=== PATIENT | female | born 1975 | race Caucasian/White ===

== ENCOUNTER → 2016-08-05 | Outpatient (CLI) | payer OTHER | LOC: FIMAGING 11:26 | PROVIDERS: ATTEND Obstetrics & Gynecology | DX: O09.521 Supervision of elderly multigravida, first trimester (principal); Z3A.12 12 weeks gestation of pregnancy ==

== ENCOUNTER 2016-09-05 17:39 | Emergency (ER) | payer OTHER ==
--- NOTE | 2016-09-05 17:56 | CPEKG ---
Heart Rate: 68 RR Interval: 882 P-R Interval: 156 QRSD Interval: 90 QT Interval: 384 QTC Interval: 409 P [place]: 70 QRS [place]: 33 T Wave [place]: -2 EKG Severity - BORDERLINE ECG - EKG Impression: SINUS RHYTHM EKG Impression: BORDERLINE R WAVE PROGRESSION, ANTERIOR LEADS Electronically Signed By: Jey Burgos 05-Sep-2016 18:03:43
--- NOTE | 2016-09-05 18:06 | EDPHY ---
H & P Stated Complaint: pvc and sob since yesterday . 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 She comes to the emergency department complaining of 2 days of intermittent palpitations and chest tightness. She denies shortness of breath. She denies chest pain. She denies fevers. She denies leg pain or swelling. She is not a smoker. No recent travel. No recent procedures. She used her 's I phone heart monitor and thought that she saw a few PVCs yesterday. She was wondering if this was the problem. She also has history of Graves disease and is Synthroid. She had her levels checked 2 months ago and they were normal. REVIEW OF SYSTEMS: Constitutional: denies: chills, fever, recent illness, recent injury EENTM: denies: blurred vision, double vision, nose congestion Respiratory: denies: cough, shortness of breath Cardiac: denies: chest pain, irregular heart rate, lightheadedness, palpitations Gastrointestinal/Abdominal: denies: abdominal pain, diarrhea, nausea, vomiting, blood streaked stools Genitourinary: denies: dysuria, frequency, hematuria, pain Musculoskeletal: denies: joint pain, muscle pain Skin: denies: lesions, rash, jaundice, bruising Neurological: denies: headache, numbness, paresthesia, tingling, dizziness, weakness Hematologic/Lymphatic: denies: blood clots, easy bleeding, easy bruising Immunologic/allergic: denies: HIV/AIDS, transplant EXAM: GENERAL: Well-appearing, well-nourished and in no acute distress. HEAD: Atraumatic, normocephalic. EYES: Pupils equal round and reactive to light, extraocular movements intact, sclera anicteric, conjunctiva are normal. ENT: TMs normal, nares patent, oropharynx clear without exudates. Moist mucous membranes. NECK: Normal range of motion, supple without lymphadenopathy or JVD. LUNGS: Breath sounds clear to auscultation bilaterally and equal. No wheezes rales or rhonchi. HEART: Regular rate and rhythm without murmurs, rubs or gallops. ABDOMEN: Soft, nontender, normoactive bowel sounds. No guarding, no rebound. No masses appreciated. BACK: No CVA tenderness, no spinal tenderness, step-offs or deformities EXTREMITIES: Normal range of motion, no pitting or edema. No clubbing or cyanosis. NEUROLOGICAL: Cranial nerves II through XII grossly intact. Normal speech, normal gait. 5/5 strength, normal movement in all extremities, normal sensation PSYCH: Normal mood, normal affect. SKIN: Warm, dry, normal turgor, no visible rashes or lesions. Source: Patient Exam Limitations: No limitations - Personal History LMP (Females 10-55): Current Tetanus Diphtheria and Acellular Pertussis (TDAP): Yes - Medical/Surgical History Hx Asthma: No Hx Chronic Respiratory Disease: No Hx Diabetes: No Hx Cardiac Disease: No Hx Renal Disease: No Hx Cirrhosis: No Hx Alcoholism: No Hx HIV/AIDS: No Other PMH: Graves Dx. D+C - Family History Significant Family History: No pertinent family hx - Social History Smoking Status: Never smoked Alcohol Use: Sober Drug Use: None Constitutional: Initial Vital Signs Heart Rate 77 09/05/16 17:54 Respiratory Rate 16 09/05/16 17:54 Blood Pressure 149/49 H 09/05/16 17:54 O2 Sat (%) 100 09/05/16 17:54 O2 Delivery Mode Room Air Allergies/Adverse Reactions: No Known Allergies Allergy (Verified 09/05/16 17:57) Home Medications: Medication Instructions Recorded Pnv 29-1 Tablet 09/05/16 Zantac 09/05/16 Medical Decision Making ED Course/Re-evaluation: The patient is and has chest tightness and some non descriptive T-wave inversion in her EKG. However she is also not tachycardic or tachypneic is saturating 99-100% on room air. She has no risk factors other than and possibly Synthroid. We agreed to keep her on the monitor to assess for PVCs and obtain a D-dimer. 7:10 p.m. we discussed the patient's lab results are reassuring. On the monitor she does have occasional PVCs about 1 every minute or 2. We discussed this. She is relieved. She does not wish to pursue imaging. I agree that her likelihood of having a significant PE is very low considering her vital signs and general presentation. I will refer her to Cardiology but will not treat the PVCs at this time. She may also discuss with them an echocardiogram to evaluate further. Differential Diagnosis: Partial list of the Differential diagnosis considered include but were not limited to; PVC, palpitation, anxiety, DVT, PE and although unlikely based on the history and physical exam, I also considered acute coronary disease, pericardial effusion. I discussed these differential diagnoses and the plan with the patient as well as the usual and expected course. The patient understands that the diagnosis is provisional and that in medicine we are not always correct and that further workup is often warranted. Usual and customary warnings were given. All of the patient's questions were answered. The patient was instructed to return to the emergency department should the symptoms at all worsen or return, otherwise to followup with the physician as we discussed. - Data Points Laboratory Results: Laboratory Results 09/05/16 18:05 09/05/16 18:05 09/05/16 09/05/16 09/05/16 18:05 18:05 18:05 WBC 5.98 10^3/uL 10^3/uL (3.80-9.50) RBC 4.16 10^6/uL L 10^6/uL (4.18-5.33) Hgb 13.6 g/dL g/dL (12.6-16.3) Hct 36.6 % L % (38.0-47.0) MCV 88.0 fL fL (81.5-99.8) MCH 32.7 pg pg (27.9-34.1) MCHC 37.2 g/dL H g/dL (32.4-36.7) RDW 14.5 % % (11.5-15.2) Plt Count 192 10^3/uL 10^3/uL (150-400) MPV 9.7 fL fL (8.7-11.7) Neut % (Auto) 70.2 % % (39.3-74.2) Lymph % (Auto) 24.1 % % (15.0-45.0) Hudson % (Auto) 4.2 % L % (4.5-13.0) Eos % (Auto) 1.0 % % (0.6-7.6) Baso % (Auto) 0.2 % L % (0.3-1.7) Nucleat RBC Rel Count 0.0 % % (0.0-0.2) Absolute Neuts (auto) 4.20 10^3/uL 10^3/uL (1.70-6.50) Absolute Lymphs (auto) 1.44 10^3/uL 10^3/uL (1.00-3.00) Absolute Monos (auto) 0.25 10^3/uL L 10^3/uL (0.30-0.80) Absolute Eos (auto) 0.06 10^3/uL 10^3/uL (0.03-0.40) Absolute Basos (auto) 0.01 10^3/uL L 10^3/uL (0.02-0.10) Absolute Nucleated RBC 0.00 10^3/uL 10^3/uL (0-0.01) Immature Gran % 0.3 % % (0.0-1.1) Immature Gran # 0.02 10^3/uL 10^3/uL (0.00-0.10) D-Dimer 0.33 ug/mLFEU ug/mLFEU (0.00-0.50) Sodium 138 mEq/L mEq/L (134-144) Potassium 3.4 mEq/L L mEq/L (3.5-5.2) Chloride 102 mEq/L mEq/L (97-110) Carbon Dioxide 23 mEq/l mEq/l (22-31) Anion Gap 13 mEq/L mEq/L (8-16) BUN 9 mg/dL mg/dL (7-23) Creatinine 0.4 mg/dL L mg/dL (0.6-1.0) Estimated GFR > 60 Glucose 85 mg/dL mg/dL (70-100) Calcium 8.8 mg/dL mg/dL (8.5-10.4) TSH 1.570 uIU/mL uIU/mL (0.465-4.680) Free T4 0.89 ng/dL ng/dL (0.59-2.19) Departure - Departure Disposition: Home, Routine, Self-Care Clinical Impression: Premature ventricular contraction Condition: Fair Instructions: Premature Ventricular Contractions (ED) Referrals: Alcira Kim MD [Primary Care Provider] - As per Instructions Drew Aviles MD [Medical Doctor] - As per Instructions Mao Damico MD [Medical Doctor] - As per Instructions Joel Albright MD [Medical Doctor] - As per Instructions
[2016-09-05 18:10] LABS: % IMMATURE GRANULYOCYTES 0.3 % (0.0-1.1); ABSOLUTE IMMATURE GRANULOCYTES 0.02 10^3/uL (0.00-0.10); ADD DIFF? NO; ADD MORPH? NO; ADD SCAN? NO; ATYPICAL LYMPHOCYTE FLAG 0 (0-99); FRAGMENT RBC FLAG 0 (0-99); HEMATOCRIT 36.6 % (38.0-47.0); HEMOGLOBIN 13.6 g/dL (12.6-16.3); LEFT SHIFT FLG 0 (0-99); LIPEMIA HEMOLYSIS FLAG 90 (0-99); MEAN CELL HEMOGLOBIN 32.7 pg (27.9-34.1); MEAN CELL HEMOGLOBIN CONCENTR. 37.2 g/dL (32.4-36.7); MEAN PLATELET VOLUME 9.7 fL (8.7-11.7); PLATELET CLUMPS FLAG 10 (0-99); PLATELET COUNT 192 10^3/uL (150-400); RED BLOOD CELL COUNT 4.16 10^6/uL (4.18-5.33); RED CELL DISTRIBUTION WIDTH 14.5 % (11.5-15.2)
[2016-09-05 18:26] LABS: ANION GAP 13 mEq/L (8-16); CALCIUM 8.8 mg/dL (8.5-10.4); CARBON DIOXIDE 23 mEq/l (22-31); CHLORIDE 102 mEq/L (97-110); CREATININE 0.4 mg/dL (0.6-1.0); GLOMERULAR FILTRATION RATE > 60; GLUCOSE 85 mg/dL (70-100); POTASSIUM 3.4 mEq/L (3.5-5.2); SODIUM 138 mEq/L (134-144)
[2016-09-05 19:29] VITALS: BP 122/89; PULSE 73; RESP 24; TEMP 98.8; O2SAT 96
== END 2016-09-05 19:30 | disposition home or self-care (01) ==
LOC: CED 17:39
DX: O99.412 Diseases of the circulatory system complicating pregnancy, second trimester (principal); I49.3 Ventricular premature depolarization; Z3A.17 17 weeks gestation of pregnancy
CPT/HCPCS: 80048-PO; 84439-PO; 84443-PO; 85025-PO; 85378-PO

== ENCOUNTER → 2016-09-24 | Outpatient (CLI) | payer OTHER | LOC: FIMAGING 11:42 | PROVIDERS: ATTEND Obstetrics & Gynecology | DX: O09.522 Supervision of elderly multigravida, second trimester (principal); Z3A.19 19 weeks gestation of pregnancy ==

== ENCOUNTER → 2016-09-30 | Outpatient (CLI) | payer OTHER | LOC: CIMAGING 07:13 | PROVIDERS: ATTEND Obstetrics & Gynecology | DX: R10.11 Right upper quadrant pain (principal); Z3A.00 Weeks of gestation of pregnancy not specified | CPT/HCPCS: 76705-PO ==

== ENCOUNTER → 2016-12-16 | Outpatient (CLI) | payer OTHER | LOC: FIMAGING 09:15 | PROVIDERS: ATTEND Obstetrics & Gynecology | DX: O09.523 Supervision of elderly multigravida, third trimester (principal); K21.9 Gastro-esophageal reflux disease without esophagitis; Z3A.31 31 weeks gestation of pregnancy ==

== ENCOUNTER 2017-02-10 06:50 | Inpatient (IN) | payer OTHER ==
[2017-02-10] MEDS ORDERED: OXYTOCIN 20 UNIT in LR 1,000 ML IV PRN (07:50)
[2017-02-10] MEDS ORDERED: OLIVE OIL 118 ML BTL MISC PRN (07:50)
[2017-02-10] MEDS ORDERED: TERBUTALINE SULFATE 1 MG/ML VIAL IV PRN (07:50)
[2017-02-10] MEDS ORDERED: EPSOM SALT 454 GM TP PRN (07:50)
--- NOTE | 2017-02-10 07:57 | PDGENHP ---
History and Physical - Chief Complaint Scheduled for Induction of labor - History of Present Illness Patient is a 41 year old at 40 weeks MARIAM 02/10/17 gestation who presents for induction of labor. According to patient was last checked last week and cervix was closed. +FM No vaginal bleeding No leaking of fluid. History Information - Allergies/Home Medication List Allergies/Adverse Reactions: No Known Allergies Allergy (Verified 09/05/16 17:57) Home Medications: Pnv 29-1 Tablet 09/05/16 [Last Taken Unknown] Zantac 09/05/16 [Last Taken Unknown] I have personally reviewed and updated: medical history - Past Medical History no pertinent PMH - Social History Smoking Status: Never smoked Review of Systems Review of Systems: Physical Exam Physical Exam: Constitutional: no apparent distress Cardiovascular: regular rate and rhythym Respiratory: no respiratory distress, clear to auscultation Gastrointestinal: normoactive bowel sounds, soft, non-tender abdomen Genitourinary: other (SVE long/closed/ high Cephalic by ultrasound cervidil ) Musculoskeletal: full muscle strength, no muscle tenderness, normal joint ROM Neurologic: AAOx3 Psychiatric: interacting appropriately, not anxious Lab Data & Imaging Review O+/Rubella Immune/GBS negative Assessment & Plan Assessment: Assessment: IUP at 40 weeks gestation Induction of labor for post dates Cephalic by ultrasound SVE:long/closed/high Plan Admit to labor and Delivery Induction of labor and Delivery Cervidil risk and benefits discussed with patient all questions answered O+/Rubella Immune/ GBS negative Plan: Admit to labor and Delivery Induction of labor and Delivery Cervidil risk and benefits discussed with patient all questions answered O+/Rubella Immune/ GBS negative
[2017-02-10] MEDS ORDERED: DINOPROSTONE 10 MG VAG SUPP VG ONE (08:12)
[2017-02-10 09:26] LABS: % IMMATURE GRANULYOCYTES 0.4 % (0.0-1.1); ABSOLUTE IMMATURE GRANULOCYTES 0.02 10^3/uL (0.00-0.10); ADD DIFF? NO; ADD MORPH? NO; ADD SCAN? NO; ATYPICAL LYMPHOCYTE FLAG 0 (0-99); FRAGMENT RBC FLAG 0 (0-99); HEMATOCRIT 36.2 % (38.0-47.0); HEMOGLOBIN 13.2 g/dL (12.6-16.3); LEFT SHIFT FLG 0 (0-99); LIPEMIA HEMOLYSIS FLAG 90 (0-99); MEAN CELL HEMOGLOBIN 33.7 pg (27.9-34.1); MEAN CELL HEMOGLOBIN CONCENTR. 36.5 g/dL (32.4-36.7); MEAN CELL VOLUME 92.3 fL (81.5-99.8); MEAN PLATELET VOLUME 10.8 fL (8.7-11.7); PLATELET CLUMPS FLAG 0 (0-99); PLATELET COUNT 146 10^3/uL (150-400); RED BLOOD CELL COUNT 3.92 10^6/uL (4.18-5.33); RED CELL DISTRIBUTION WIDTH 13.2 % (11.5-15.2)
[2017-02-10] MEDS: Ranitidine Hcl [Zantac] 150 MG PO SCH (19:06)
--- NOTE | 2017-02-10 19:12 | OBPROG ---
Labor Progress Note Assessment/Plan: Assessment: Plan: Subjective/Intrapartum Course: 02/10/17 19:09 Patient is more uncomfortable. was examined 2 hours ago and was 3-4 cm. contractions have intensified. just examined and was 4 cm. Objective: 02/10/17 08:45 Patient ABO/Rh O POSITIVE 02/10/17 08:45 - SVE Dilation (cm): 4 Effacement (%): 75 Station: -2 Membranes: AROM Amniotic Fluid Color: Clear - FHR Assessment Herrera FHR Pattern Variability: Moderate FHR Category: 1 Oxytocin Orders Assessment - Pre-Induction/Augmentation Assessment Gestational Age: 40 week(s) and 0 day(s)
--- NOTE | 2017-02-11 00:10 | OBPROG ---
Labor Progress Note Assessment/Plan: Assessment: Plan: Subjective/Intrapartum Course: 02/11/17 00:09 cervidil removed at 2100. SVE 1/long/-2. da silva bulb placed without difficulty. patient uncomfortable with cramping. Objective: 02/10/17 08:45 Patient ABO/Rh O POSITIVE 02/10/17 08:45 - SVE Dilation (cm): 1 Effacement (%): Less than 50 Station: -2 Membranes: Intact - FHR Assessment Herrera FHR Pattern Variability: Moderate FHR Category: 1 Oxytocin Orders Assessment - Pre-Induction/Augmentation Assessment Gestational Age: 40 week(s) and 0 day(s) ICD10 Worksheet Patient Problems: Problems Problem Status Onset hypertension Acute Urinary tract infection Acute Elective induction of labor planned Acute
[2017-02-11] MEDS ORDERED: LR 500 ML IV PRN (00:11)
[2017-02-11] MEDS ORDERED: OXYTOCIN 30 UNIT in NS 500 ML IV SCH (00:15)
--- NOTE | 2017-02-11 00:45 | OBPROG ---
Labor Progress Note Assessment/Plan: Assessment: Plan: Subjective/Intrapartum Course: 02/11/17 00:09 cervidil removed at 2100. SVE 1/long/-2. da silva bulb placed without difficulty. patient uncomfortable with cramping. 02/11/17 00:45 patient feeling much more cramping. feels better in the tub. declines pain medication. wants to sit in the tub. fhts doppled. Objective: 02/10/17 08:45 Patient ABO/Rh O POSITIVE 02/10/17 08:45 - SVE Membranes: Intact - FHR Assessment Herrera FHR Pattern Variability: Moderate FHR Category: 1 Oxytocin Orders Assessment - Pre-Induction/Augmentation Assessment Gestational Age: 40 week(s) and 0 day(s) ICD10 Worksheet Patient Problems: Problems Problem Status Onset hypertension Acute Urinary tract infection Acute Elective induction of labor planned Acute
[2017-02-11] MEDS ORDERED: OXYTOCIN 10 UNIT/ML VIAL ONE (06:23)
[2017-02-11] MEDS ORDERED: AMMONIA AROMATIC 1 EACH AMP IH ONE (06:23)
[2017-02-11] MEDS ORDERED: LIDOCAINE 1% 300 MG/30 ML SDV ONE (06:23)
[2017-02-11] MEDS ORDERED: OLIVE OIL 118 ML BTL ONE (06:23)
[2017-02-11] MEDS ORDERED: TERBUTALINE SULFATE 1 MG/ML VIAL ONE (06:23)
[2017-02-11] MEDS ORDERED: MISOPROSTOL 200 MCG TAB ONE (06:24)
[2017-02-11] MEDS: Ranitidine Hcl [Zantac] 150 MG PO SCH ×2 (06:59→18:54)
[2017-02-11] MEDS: LR 1,000 ML IV PRN ×2 (07:35→19:38)
--- NOTE | 2017-02-11 07:35 | OBPROG ---
Labor Progress Note Assessment/Plan: Assessment: 41 y/o @ 40 1/7 weeks IOL secondary to AMA. Plan: Begin pitocin now and will leave the da silva in place for now. I will check her cervix when she develops a good labor pattern and remove the da silva to attempt AROM. 02/11/17 07:32 Subjective/Intrapartum Course: 02/11/17 00:09 cervidil removed at 2100. SVE 1/long/-2. da silva bulb placed without difficulty. patient uncomfortable with cramping. 02/11/17 00:45 patient feeling much more cramping. feels better in the tub. declines pain medication. wants to sit in the tub. fhts doppled. 02/11/17 07:30 Pt is comfortable this am. She slept well from about 2am-6 am. She denies cramping now. Good FM. Objective: 02/10/17 08:45 Patient ABO/Rh O POSITIVE 02/10/17 08:45 - SVE Membranes: Intact - Contraction Pattern Assessment Current Contraction Pattern: Irregular - FHR Assessment Herrera FHR (bpm): 130 FHR Pattern Variability: Moderate FHR Category: 1 Oxytocin Orders Assessment - Pre-Induction/Augmentation Assessment Gestational Age: 40 week(s) and 0 day(s) ICD10 Worksheet Patient Problems: Problems Problem Status Onset Elective induction of labor planned Acute - ICD10 Problem Qualifiers (1) Elective induction of labor planned
--- NOTE | 2017-02-11 12:38 | OBPROG ---
Labor Progress Note Assessment/Plan: Assessment: 41 y/o @ 40 1/7 weeks IOL secondary to AMA. Plan: Da Silva removed and AROM performed now. Pt is getting into the tub and may consider an epidural later. status is reassuring. 02/11/17 07:32 02/11/17 12:37 Subjective/Intrapartum Course: 02/11/17 00:09 cervidil removed at 2100. SVE 1/long/-2. da silva bulb placed without difficulty. patient uncomfortable with cramping. 02/11/17 00:45 patient feeling much more cramping. feels better in the tub. declines pain medication. wants to sit in the tub. fhts doppled. 02/11/17 07:30 Pt is comfortable this am. She slept well from about 2am-6 am. She denies cramping now. Good FM. 02/11/17 12:36 Pt is feeling some stronger contractions, but is still overall comfortable. Objective: 02/10/17 08:45 Patient ABO/Rh O POSITIVE 02/10/17 08:45 - SVE Dilation (cm): 4 Effacement (%): 80 Station: -2 Membranes: AROM, Intact Amniotic Fluid Color: Clear - Contraction Pattern Assessment Current Contraction Pattern: Regular (Q 2-3), Irregular - Procedures Non-surgical Procedures: Amniotomy Oxytocin Orders Assessment - Pre-Induction/Augmentation Assessment Gestational Age: 40 week(s) and 0 day(s) ICD10 Worksheet Patient Problems: Problems Problem Status Onset Elective induction of labor planned Acute - ICD10 Problem Qualifiers (1) Elective induction of labor planned
--- NOTE | 2017-02-11 18:49 | OBPROG ---
Labor Progress Note Assessment/Plan: Assessment: 41 y/o @ 40 1/7 weeks IOL secondary to AMA. Plan: Good cervical progress, pt is coping with contractions but is feeling tired. She wants to get back in the tub for 1 hour and may consider NO or an epidural. status is reassuring. 02/11/17 07:32 02/11/17 12:37 02/11/17 18:45 Subjective/Intrapartum Course: 02/11/17 00:09 cervidil removed at 2100. SVE 1/long/-2. da silva bulb placed without difficulty. patient uncomfortable with cramping. 02/11/17 00:45 patient feeling much more cramping. feels better in the tub. declines pain medication. wants to sit in the tub. fhts doppled. 02/11/17 07:30 Pt is comfortable this am. She slept well from about 2am-6 am. She denies cramping now. Good FM. 02/11/17 12:36 Pt is feeling some stronger contractions, but is still overall comfortable. 02/11/17 18:44 Pt is feeling strong and uncomfortable contractions, she feels pelvic pressure and says she is getting very tired. Objective: 02/10/17 08:45 Patient ABO/Rh O POSITIVE 02/10/17 08:45 - SVE Dilation (cm): 6 Effacement (%): 80 Station: 0 Membranes: AROM, Intact Amniotic Fluid Color: Clear - Contraction Pattern Assessment Current Contraction Pattern: Regular (Q 2-3), Irregular - Procedures Non-surgical Procedures: Amniotomy Oxytocin Orders Assessment - Pre-Induction/Augmentation Assessment Gestational Age: 40 week(s) and 0 day(s) ICD10 Worksheet Patient Problems: Problems Problem Status Onset Elective induction of labor planned Acute - ICD10 Problem Qualifiers (1) Elective induction of labor planned
[2017-02-11] MEDS ORDERED: fentaNYL 2MCG/ML/BUP 0.1% RTU 100 ML BAG EP ONE (19:16)
[2017-02-11] MEDS ORDERED: PHENYLEPHRINE HCL 100 MCG/ML SYR ONE (19:16)
[2017-02-11] MEDS ORDERED: BUPIVACAINE 0.25% 30 ML SDV ONE (19:16)
[2017-02-11] MEDS ORDERED: fentaNYL 100 MCG/2 ML INJ ONE (19:17)
--- NOTE | 2017-02-11 20:52 | OBPROG ---
Labor Progress Note Assessment/Plan: Assessment: 41 y/o @ 40 1/7 weeks IOL secondary to AMA. Plan: Pt is now comfortable with her epidural. She has slowed with cervical progress and contractions have spaced to Q 5 minutes or more. I placed an IUPC and we will increase pitocin to document a good labor pattern. status is reassuring. 02/11/17 07:32 02/11/17 12:37 02/11/17 18:45 02/11/17 20:50 Subjective/Intrapartum Course: 02/11/17 00:09 cervidil removed at 2100. SVE 1/long/-2. da silva bulb placed without difficulty. patient uncomfortable with cramping. 02/11/17 00:45 patient feeling much more cramping. feels better in the tub. declines pain medication. wants to sit in the tub. fhts doppled. 02/11/17 07:30 Pt is comfortable this am. She slept well from about 2am-6 am. She denies cramping now. Good FM. 02/11/17 12:36 Pt is feeling some stronger contractions, but is still overall comfortable. 02/11/17 18:44 Pt is feeling strong and uncomfortable contractions, she feels pelvic pressure and says she is getting very tired. 02/11/17 20:49 Pt is now comfortable with her epidural. Objective: 02/10/17 08:45 Patient ABO/Rh O POSITIVE 02/10/17 08:45 - SVE Dilation (cm): 6 Effacement (%): 80 Station: 0 Membranes: AROM, Intact Amniotic Fluid Color: Clear - Contraction Pattern Assessment Current Contraction Pattern: Regular (Q 3-5), Irregular - FHR Assessment Herrera FHR (bpm): 140 FHR Pattern Variability: Moderate FHR Category: 1 - Procedures Non-surgical Procedures: Amniotomy, IUPC Oxytocin Orders Assessment - Pre-Induction/Augmentation Assessment Gestational Age: 40 week(s) and 0 day(s) ICD10 Worksheet Patient Problems: Problems Problem Status Onset Elective induction of labor planned Acute - ICD10 Problem Qualifiers (1) Elective induction of labor planned
--- NOTE | 2017-02-11 22:07 | PREANESOB ---
Obstetric Pre-Anesthesia Info - General Info Proposed Procedure: Labor and delivery with pitocin. : 2 Para: 0 MARIAM: 02/10/17 Gestational Age: 40 week(s) and 0 day(s) - Info Status: Full Term Monitors: External FHR Baseline (bpm): 130 FHR Pattern: Reassuring - Labor Status Cervical Dilation per last OB SVE: 6 Station per last OB SVE: 0 Amniotic Fluid Color: Clear Pitocin: In Use Indications for Labor Analgesia: Induction of Labor, Pain Control Labor Epidural: Proposed Anesthesia ROS: Prior general anesthesia for D&C. Allergies/Adverse Reactions: Allergy/AdvReac Type Severity Reaction Status Date / Time No Known Allergies Allergy Verified 09/05/16 17:57 Home Medications: Medication Instructions Recorded Pnv 29-1 Tablet 09/05/16 Ranitidine HCl [Zantac] 150 mg PO BID 09/05/16 Visit Medications: Generic Name Dose Route Start Last Admin Trade Name Freq PRN Reason Stop Dose Admin Lactated Ringer's 1,000 mls @ 0 mls/hr 02/10/17 07:50 02/11/17 19:38 Lr IV 08/09/17 07:49 1,000 mls PRN PRN Administration SEE PROTOCOL CONDITIONS Protocol Per Protocol Oxytocin 20 unit/ Lactated 1,002 mls @ 150 mls/hr 02/10/17 07:50 Ringer's IV PRN PRN Post- bleeding Lactated Ringer's 500 mls @ 500 mls/hr 02/11/17 00:11 Lr IV PRN PRN Maternal Hypotension Oxytocin 30 unit/ Sodium 503 mls @ 0 mls/hr 02/11/17 00:15 Chloride IV 08/10/17 00:14 CONT ELISA Protocol Per Protocol Ibuprofen 600 mg 02/10/17 07:50 Motrin PO 08/09/17 07:49 Q6HRS PRN post , inflammation Magnesium Sulfate 454 gm 02/10/17 07:50 Epsom Salt TP 08/09/17 07:49 Q1H PRN perineal discomfort Miscellaneous Medication 150 mg 02/10/17 21:00 02/11/17 18:54 Ranitidine Hcl [Zantac] PO 08/09/17 20:59 150 mg BID ELISA Administration [place]annah Oil 118 ml 02/10/17 07:50 Sweet Oil MISC 08/09/17 07:49 ONCE PRN perineal massage Terbutaline Sulfate 0.25 mg 02/10/17 07:50 Brethine IV 08/09/17 07:49 ONCE PRN Tachysystole Discontinued Medications Generic Name Dose Route Start Last Admin Trade Name Brianna PRN Reason Stop Dose Admin Ammonia (Aromatic Spirit) Confirm 02/11/17 06:23 Ammonia Aromatic Administered 02/11/17 06:24 Dose 1 each IH .STK-MED ONE Bupivacaine HCl Confirm 02/11/17 19:16 Sensorcaine 0.25% Sdv Administered 02/11/17 19:17 Dose 30 ml .ROUTE .STK-MED ONE Dinoprostone 10 mg 02/10/17 08:12 02/10/17 08:55 Cervidil VG 02/10/17 08:13 10 mg ONCE ONE Administration Ephedrine Sulfate Confirm 02/11/17 06:23 Ephedrine Sulfate Administered 02/11/17 06:24 Dose 50 mg .ROUTE .STK-MED ONE Fentanyl Confirm 02/11/17 19:17 Sublimaze Administered 02/11/17 19:18 Dose 100 mcg .ROUTE .STK-MED ONE Fentanyl/Bupivacaine HCl Confirm 02/11/17 19:16 Fentanyl/Bupivacaine/Ns 2 Mcg/Ml 0.1% (Premix Administered 02/11/17 19:17 Dose 100 ml EP .STK-MED ONE Lidocaine HCl Confirm 02/11/17 06:23 Lidocaine Hcl 1% Administered 02/11/17 06:24 Dose 300 mg .ROUTE .STK-MED ONE Misoprostol Confirm 02/11/17 06:24 Cytotec Administered 02/11/17 06:25 Dose 1,000 mcg .ROUTE .STK-MED ONE [place] Oil Confirm 02/11/17 06:23 Sweet Oil Administered 02/11/17 06:24 Dose 118 ml .ROUTE .STK-MED ONE Oxytocin Confirm 02/11/17 06:23 Pitocin Administered 02/11/17 06:24 Dose 40 unit .ROUTE .STK-MED ONE Phenylephrine HCl Confirm 02/11/17 19:16 Neosynephrine Administered 02/11/17 19:17 Dose 1,000 mcg .ROUTE .STK-MED ONE Terbutaline Sulfate Confirm 02/11/17 06:23 Brethine Administered 02/11/17 06:24 Dose 1 mg .ROUTE .STK-MED ONE - Anesthesia History Response to Local Anesthetics: Normal Anesthesia & Operative History: No Prior Problems Family Anesthesia History: Negative - Social History Substance Use/Abuse: Denies - Vital Signs Blood Pressure: 158/88 Heart Rate: 90 Height/Weight (Nursing): Height 162.56 cm Weight 67.132 kg - Focused Exam Neck exam: FROM Mallampati Score: Class 1 Mouth exam: normal dental/mouth exam Pulmonary: no respiratory distress Cardiovascular: regular rate and rhythym Labs: 02/10/17 08:45 Patient ABO/Rh O POSITIVE 02/10/17 08:45 - Plan Anesthetic Plan: OZZY Consent Signed and on Chart: Yes Patient/Guardian Understands and Agrees to Plan: Yes Urgent/Emergent Case: Adriel phillips completed preop but documented later for safe timely pt care
[2017-02-11] MEDS ORDERED: PHENYLEPHRINE HCL 100 MCG/ML SYR IVP PRN (22:10)
[2017-02-11] MEDS ORDERED: ONDANSETRON 4 MG/2 ML VIAL IVP PRN (22:10)
--- NOTE | 2017-02-11 22:10 | POSTANESTH ---
Post Anesthetic Evaluation Cardiovascular Status: Normal, Stable, Similar to Pre-Op Cond Respiratory Status: Normal, Stable, Similar to Pre-op Cond. Level of Consciousness/Mental Status: Can Participate in Eval, Alert and Oriented Pain Control: Adequate, Prn Tx Ordered Nausea/Vomiting Control: Adequate, Prn Tx Ordered Complications Possibly Related to Anesthesia: None Noted
[2017-02-11] MEDS ORDERED: LR 500 ML IV SCH (22:30)
[2017-02-11] MEDS ORDERED: fentaNYL 2MCG/ML/BUP 0.1% RTU 100 ML EP SCH (22:30)
--- NOTE | 2017-02-11 23:51 | OBPROG ---
Labor Progress Note Assessment/Plan: Assessment: 41 y/o @ 40 1/7 weeks IOL secondary to AMA. Plan: Pt is making slow steady progress, pitocin is @ 30 mU now, and not adequate but improved. Will rotate patient on her left side where her cervix is swollen and re-asses in 1-2 hours. 02/11/17 07:32 02/11/17 12:37 02/11/17 18:45 02/11/17 20:50 02/11/17 23:47 Subjective/Intrapartum Course: 02/11/17 00:09 cervidil removed at 2100. SVE 1/long/-2. da silva bulb placed without difficulty. patient uncomfortable with cramping. 02/11/17 00:45 patient feeling much more cramping. feels better in the tub. declines pain medication. wants to sit in the tub. fhts doppled. 02/11/17 07:30 Pt is comfortable this am. She slept well from about 2am-6 am. She denies cramping now. Good FM. 02/11/17 12:36 Pt is feeling some stronger contractions, but is still overall comfortable. 02/11/17 18:44 Pt is feeling strong and uncomfortable contractions, she feels pelvic pressure and says she is getting very tired. 02/11/17 20:49 Pt is now comfortable with her epidural. 02/11/17 23:46 Pt remains comfortable with her epidural, she feels some abdominal pressure, not pelvic. Objective: 02/10/17 08:45 Patient ABO/Rh O POSITIVE 02/10/17 08:45 Temp Pulse Resp BP Pulse Ox 90 158/88 H 02/11/17 22:09 02/11/17 22:09 - SVE Dilation (cm): 8 Effacement (%): 75 Station: -1 Membranes: AROM, Intact Amniotic Fluid Color: Clear - Contraction Pattern Assessment Current Contraction Pattern: Regular (Q 3-5), Irregular - FHR Assessment Herrera FHR (bpm): 140 FHR Pattern Variability: Moderate FHR Category: 1 - Procedures Non-surgical Procedures: Amniotomy, IUPC Oxytocin Orders Assessment - Pre-Induction/Augmentation Assessment Gestational Age: 40 week(s) and 0 day(s) ICD10 Worksheet Patient Problems: Problems Problem Status Onset Elective induction of labor planned Acute - ICD10 Problem Qualifiers (1) Elective induction of labor planned
[2017-02-12] MEDS ORDERED: HEMABATE 250 MCG/1 ML AMP IM ONE (03:08)
[2017-02-12] MEDS ORDERED: METHYLERGONOVINE MAL 0.2 MG/ML INJ ONE (03:08)
[2017-02-12] MEDS ORDERED: SIMETHICONE 80 MG TAB CHEW PO PRN (04:29)
[2017-02-12] MEDS ORDERED: HYDROCORTISONE 0.5% CREAM TP PRN (04:29)
[2017-02-12] MEDS ORDERED: ACETAMINOPHEN 325 MG TAB PO PRN (04:29)
[2017-02-12] MEDS ORDERED: HYDROCODONE/APAP 5/325 TAB PO PRN (04:29)
--- NOTE | 2017-02-12 04:33 | OBDEL ---
Info Type: Vaginal Presentation at Delivery: Vertex L&D Analgesia/Anesthesia Type: Epidural GBS+: No Intrapartum Medications: Generic Name Dose Route Start Last Admin Trade Name Freq PRN Reason Stop Dose Admin Lactated Ringer's 1,000 mls @ 0 mls/hr 02/10/17 07:50 02/11/17 19:38 Lr IV 08/09/17 07:49 1,000 mls PRN PRN Administration SEE PROTOCOL CONDITIONS Protocol Per Protocol Miscellaneous Medication 150 mg 02/10/17 21:00 02/11/17 18:54 Ranitidine Hcl [Zantac] PO 08/09/17 20:59 150 mg BID ELISA Administration Discontinued Medications Generic Name Dose Route Start Last Admin Trade Name Freq PRN Reason Stop Dose Admin Dinoprostone 10 mg 02/10/17 08:12 02/10/17 08:55 Cervidil VG 02/10/17 08:13 10 mg ONCE ONE Administration - Care Provider Press Pipe Inspector/SLAB INSPECTOR: Sahara Meza - Hospital Course Intrapartum: 02/11/17 00:09 cervidil removed at 2100. SVE 1/long/-2. da silva bulb placed without difficulty. patient uncomfortable with cramping. 02/11/17 00:45 patient feeling much more cramping. feels better in the tub. declines pain medication. wants to sit in the tub. fhts doppled. 02/11/17 07:30 Pt is comfortable this am. She slept well from about 2am-6 am. She denies cramping now. Good FM. 02/11/17 12:36 Pt is feeling some stronger contractions, but is still overall comfortable. 02/11/17 18:44 Pt is feeling strong and uncomfortable contractions, she feels pelvic pressure and says she is getting very tired. 02/11/17 20:49 Pt is now comfortable with her epidural. 02/11/17 23:46 Pt remains comfortable with her epidural, she feels some abdominal pressure, not pelvic. Indications for Delivery: Elective (40 weeks, AMA) Vaginal Delivery - Delivery Provider Delivery Physician/CNM: Lupis Castellon - Labor and Delivery Onset of Contractions Date: 02/10/17 Onset of Contractions Time: 09:45 Onset of Contractions Type: Induced Rupture of Membranes Date: 02/11/17 Rupture of Membranes Time: 12:29 Rupture of Membranes Type: Artificial Amniotic Fluid Color: Clear, Meconium Stained (terminal meconium) Dilation Complete Date: 02/12/17 Dilation Complete Time: 02:59 Placenta Delivery Date: 02/12/17 Placenta Delivery Time: 04:14 Total Hours of Labor: 42 Non-surgical Procedures: Amniotomy, IUPC Laceration: 2nd Degree Repair: 2-0, Vicryl Vaginal Sponge Count Correct: Yes Vaginal Needle Count Correct: Yes Vaginal Sweep Performed: No EBL: 300 Delivery Events: Nuchal Cord (tight x 1, reduced on perineum) - Medications Labor Augmentation/Induction Methods Used: Pitocin, Misoprostol, Da Silva Bulb, Cervadil Labor Augmentation/Induction Indication: Other (Specify) (40 weeks, AMA) [place] Data Herrera Delivery Date: 02/12/17 Delivery Time: 04:11 MARIAM: 02/10/17 Gestational Age: 40 week(s) and 2 day(s) Sex of : Female Score (1 Min): 1 Score (5 Min): 8 ICD10 Worksheet Patient Problems: Problems Problem Status Onset Elective induction of labor planned Acute - ICD10 Problem Qualifiers (1) Elective induction of labor planned
[2017-02-12 04:36] LABS: PH VENOUS CORD BLOOD 7.12 (7.20-7.42)
[2017-02-12] MEDS: IBUPROFEN 600 MG TAB PO PRN ×3 (05:50→18:57)
--- NOTE | 2017-02-12 12:45 | OBPP ---
Progress Note Assessment/Plan: Assessment: PPD 1/2 s/p had cath Plan: Routine care 02/12/17 12:41 Subjective/ Course: 02/12/17 12:45 Doing ok, happy with delivery, no rest yet Objective: 02/10/17 08:45 Patient ABO/Rh O POSITIVE 02/10/17 08:45 Temp Pulse Resp BP Pulse Ox 90 158/88 H 02/11/17 22:09 02/11/17 22:09 Uterine Position/Fundal Height: At Umbilicus Uterine Tone: Firm Physical Exam - Physical Exam Abdomen: non-tender, soft, other (FF at umb -1) Extremities: non-tender, pedal edema (minimal) Skin: normal color, warm/dry Neuro/Psych: alert, normal mood/affect
[2017-02-12] MEDS: Ranitidine Hcl [Zantac] 150 MG PO SCH ×2 (14:41→21:43)
[2017-02-12] MEDS: DOCUSATE SODIUM 100 MG CAP PO PRN (15:33)
[2017-02-12 21:59] VITALS: RESP 16
[2017-02-13] MEDS: IBUPROFEN 600 MG TAB PO PRN ×5 (00:33→19:30)
[2017-02-13] MEDS ORDERED: SUCROSE 1 EA UDL ONE (04:28)
[2017-02-13] MEDS: DOCUSATE SODIUM 100 MG CAP PO PRN (08:22)
--- NOTE | 2017-02-13 09:39 | OBPP ---
Progress Note Assessment/Plan: Assessment: [id number] s/p PPD#1 Plan: routine PP care cont ambulate plan to d/c home tomorrow 02/13/17 09:36 Subjective/ Course: 02/12/17 12:45 Doing ok, happy with delivery, no rest yet 02/13/17 09:37 Pt doing well, she denies any pain. She reports min bleeding and cramping. She is . She denies any depression. FOB @ BS and supportive. She is voiding without difficulty. Objective: 02/13/17 04:36 Patient ABO/Rh O POSITIVE 02/10/17 08:45 Temp Pulse Resp BP Pulse Ox 36.2 C 89 16 128/73 H 02/12/17 19:50 02/12/17 19:50 02/12/17 19:50 02/12/17 19:50 Uterine Position/Fundal Height: At Umbilicus, Midline Uterine Tone: Firm Physical Exam - Physical Exam EENT: PERRL/EOMI Neck: non-tender Respiratory: lungs clear, normal breath sounds Cardiac/Chest: regular rate, rhythm Abdomen: non-tender, soft Extremities: normal range of motion, non-tender Skin: normal color, warm/dry Neuro/Psych: no motor/sensory deficits, alert, normal mood/affect, oriented x 3
[2017-02-13] MEDS: Ranitidine Hcl [Zantac] 150 MG PO SCH (09:49)
[2017-02-14] MEDS: IBUPROFEN 600 MG TAB PO PRN ×2 (00:41→09:46)
[2017-02-14] MEDS: DOCUSATE SODIUM 100 MG CAP PO PRN ×2 (00:41→09:46)
[2017-02-14] MEDS: Ranitidine Hcl [Zantac] 150 MG PO SCH ×2 (00:43→12:15)
--- NOTE | 2017-02-14 08:40 | OBPP ---
Progress Note Assessment/Plan: Assessment: Post day 2 Stable afebrile Tolerating diet ambulating and breast feeding Ready to discharge home Plan: Discharge home Follow up two weeks for wellness check Ibuprofen and norco for pain Return precautions given. 02/14/17 08:39 02/14/17 08:46 Subjective/ Course: 02/12/17 12:45 Doing ok, happy with delivery, no rest yet 02/13/17 09:37 Pt doing well, she denies any pain. She reports min bleeding and cramping. She is . She denies any depression. FOB @ BS and supportive. She is voiding without difficulty. Objective: 02/13/17 04:36 Patient ABO/Rh O POSITIVE 02/10/17 08:45 Temp Pulse Resp BP Pulse Ox 36.5 C 81 16 117/77 96 02/13/17 20:00 02/13/17 20:00 02/13/17 20:00 02/13/17 20:00 02/13/17 20:00 Uterine Position/Fundal Height: Umbilicus -2 Uterine Tone: Firm Physical Exam - Physical Exam Respiratory: chest non-tender Abdomen: normal bowel sounds, non-tender, soft Extremities: normal range of motion, non-tender Back: Normal inspection Skin: normal color, warm/dry Neuro/Psych: no motor/sensory deficits, alert, normal mood/affect, oriented x 3
--- NOTE | 2017-02-14 08:51 | OBGCSDC ---
General Delivery Information - General Info : 2 Para: 1 Abortions: 1 Type: Vaginal L&D Analgesia/Anesthesia Type: Epidural Admission Date: 02/10/17 Labs: Patient ABO/Rh O POSITIVE 02/10/17 08:45 Hct 32.3 % (38.0-47.0) L 02/13/17 04:36 - Hospital Course Intrapartum: 02/11/17 00:09 cervidil removed at 2100. SVE 1/long/-2. da silva bulb placed without difficulty. patient uncomfortable with cramping. 02/11/17 00:45 patient feeling much more cramping. feels better in the tub. declines pain medication. wants to sit in the tub. fhts doppled. 02/11/17 07:30 Pt is comfortable this am. She slept well from about 2am-6 am. She denies cramping now. Good FM. 02/11/17 12:36 Pt is feeling some stronger contractions, but is still overall comfortable. 02/11/17 18:44 Pt is feeling strong and uncomfortable contractions, she feels pelvic pressure and says she is getting very tired. 02/11/17 20:49 Pt is now comfortable with her epidural. 02/11/17 23:46 Pt remains comfortable with her epidural, she feels some abdominal pressure, not pelvic. : 02/12/17 12:45 Doing ok, happy with delivery, no rest yet 02/13/17 09:37 Pt doing well, she denies any pain. She reports min bleeding and cramping. She is . She denies any depression. FOB @ BS and supportive. She is voiding without difficulty. Vaginal - Delivery Provider Delivery Physician/CNM: Lupis Castellon - Diagnosis Labor: Induced Rupture of Membranes Type: Artificial Amniotic Fluid Color: Clear, Meconium Stained (terminal meconium) Laceration: 2nd Degree Repair: 2-0, Vicryl Delivery Events: Nuchal Cord (tight x 1, reduced on perineum) - Procedures Non-surgical Procedures: Amniotomy, IUPC - Delivery Non-surgical Procedures: Amniotomy, IUPC EBL: [address] Data Herrera Delivery Date: 02/12/17 Delivery Time: 04:11 MARIAM: 02/10/17 Gestational Age: 40 week(s) and 4 day(s) Sex of Infant: Female Weight (gm): 3006 g Score (1 Min): 1 Score (5 Min): 8 Score (10 Min): 9 Discharge Information - Discharge Information Prescriptions: Hydrocodone/APAP 5/325 [[place] 5/325 (*)] 1 - 2 tab PO Q4HRS PRN #30 tab PRN Reason: Pain, Moderate Ibuprofen [Motrin (*)] 600 mg PO Q6HRS PRN #30 tab PRN Reason: post , inflammation Docusate Sodium [Colace 100 MG (*)] 100 mg PO BID PRN #30 cap PRN Reason: Constipation Condition: Good Instruction/Follow Up: Two Weeks
[2017-02-14 11:08] VITALS: BP 114/70; PULSE 97; TEMP 97; O2SAT 97
== END 2017-02-14 14:50 | disposition home or self-care (01) | DRG 775 ==
LOC: FLD 06:50 → FOB 02-12 09:00
PROVIDERS: ADMIT Obstetrics & Gynecology; ATTEND Obstetrics & Gynecology
PROC: 0U7C7ZZ Dilation of Cervix, Via Natural or Artificial Opening (ICD-10-PCS; 2017-02-11)
PROC: 3E033VJ Introduction of Other Hormone into Peripheral Vein, Percutaneous Approach (ICD-10-PCS; 2017-02-11)
PROC: 10H073Z Insertion of Monitoring Electrode into Products of Conception, Via Natural or Artificial Opening (ICD-10-PCS; 2017-02-11)
PROC: 10E0XZZ Delivery of Products of Conception, External Approach (ICD-10-PCS; principal; 2017-02-12)
PROC: 0KQM0ZZ Repair Perineum Muscle, Open Approach (ICD-10-PCS; 2017-02-12)
DX: O48.0 Post-term pregnancy (principal); O63.0 Prolonged first stage (of labor); O77.0 Labor and delivery complicated by meconium in amniotic fluid; O70.1 Second degree perineal laceration during delivery; O69.89X0 Labor and delivery complicated by other cord complications, not applicable or unspecified; Z3A.40 40 weeks gestation of pregnancy; Z37.0 Single live birth
CPT/HCPCS: J2210; J2370; J3010; J3105

== ENCOUNTER 2017-02-16 18:24 | Observation (INO) | payer OTHER ==
--- NOTE | 2017-02-16 18:47 | EDPHY ---
H & P Time Seen by Provider: 02/16/17 18:28 HPI/ROS: CHIEF COMPLAINT: Hypertension HISTORY OF PRESENT ILLNESS: The patient is a 41-year-old female who presents to the emergency department with hypertension. The patient is G2 para 1. Her 1st she she had a miscarriage a weeks. Her 2nd , she had a vaginal delivery on 02/12/[address] Castellon. She was 40 weeks . There was a nuchal cord but no other complications. She had no hypertension or preeclampsia during either . After delivery she noticed that she had mild bilateral pedal edema. Her baker head saw his prior to discharge. Patient states that her swelling has worsened. Because of this she took her blood pressure and it was 190/100. The patient denies any headache or blurred vision. She has no leg or calf pain. Her swelling is symmetric. She has had no chest pain or shortness of breath. No abdominal pain. No nausea or vomiting. REVIEW OF SYSTEMS: My complete review of systems is negative except as mentioned in the HPI. Past Medical/Surgical History: Includes Graves disease, GERD Social history: Patient does not smoke or use alcohol. The patient works as a cardiac nurse. Smoking Status: Never smoked Physical Exam: Vitals noted. 179/98 GENERAL: Anxious, in no acute distress, alert. HEENT: Eyes normal to inspection, normal pharynx, no signs of dehydration. NECK: No thyromegaly, no lymphadenopathy, supple. RESPIRATORY: Clear to auscultation bilaterally, no rales, rhonchi or wheezing. CVS: Regular rate and rhythm, no rubs, murmurs, or gallops. ABDOMEN: . Mild residual abdominal swelling. Soft, nontender, no organomegaly. BACK: Normal to inspection, no CVA tenderness. SKIN: Normal color, no rash, warm, dry. No pallor. EXTREMITIES: Mild bilateral pedal edema, no calf tenderness, no Homans sign or cords, no joint swelling. NEURO/PSYCH: Alert and oriented x3, normal mood and affect, normal motor sensory exam. No obvious cranial nerve deficit. Constitutional: Initial Vital Signs Temperature (C) 37.1 C 02/16/17 18:44 Heart Rate 74 02/16/17 18:44 Respiratory Rate 18 02/16/17 18:44 Blood Pressure 179/98 H 02/16/17 18:44 O2 Sat (%) 98 02/16/17 18:44 O2 Delivery Mode Room Air Allergies/Adverse Reactions: No Known Allergies Allergy (Verified 02/16/17 18:44) Home Medications: Medication Instructions Recorded Ranitidine HCl [Zantac] 150 mg PO BID 09/05/16 Docusate Sodium [Colace 100 MG (*)] 100 mg PO BID PRN #30 cap 02/14/17 Hydrocodone/APAP 5/325 [[place] 1 - 2 tab PO Q4HRS PRN #30 tab 02/14/17 5/325 (*)] Ibuprofen [Motrin (*)] 600 mg PO Q6HRS PRN #30 tab 02/14/17 Medical Decision Making ED Course/Re-evaluation: In the emergency department I discussed possible etiologies with the patient. I answered all her questions. IV was placed. Laboratory studies were obtained. EKG shows normal sinus rhythm, normal rate, normal axis, normal intervals. There are no ST or T-wave abnormalities. EKG is normal as interpreted by me. Patient's hematocrit was 37. Her previous hematocrit from 02/13/2017 is 32. Chemistry panel pending. Patient's UA is negative for protein. Positive white cells, leuk esterase and bacteria. Patient's chemistry panel is unremarkable. The patient's AST and ALT are mildly elevated at 55 and 73 respectively. Bilirubin is normal. Alk-phos normal. 725: I discussed the case with Dr. Og who was on-call for Dr. Castellon. She recommended the patient be admitted to her service at Labor and delivery. I discussed with the patient. I answered all her questions. The patient was given Keflex 500 mg orally for her urinary findings. Differential Diagnosis: My differential includes but is not limited to hypertension, preeclampsia, HELLP, thyroid disease, renal disease, myopathy - Data Points Laboratory Results: Laboratory Results 02/16/17 19:00 02/16/17 19:00 02/16/17 02/16/17 02/16/17 19:00 19:00 18:55 WBC 7.05 10^3/uL 10^3/uL (3.80-9.50) RBC 3.99 10^6/uL L 10^6/uL (4.18-5.33) Hgb 13.2 g/dL g/dL (12.6-16.3) Hct 37.6 % L % (38.0-47.0) MCV 94.2 fL fL (81.5-99.8) MCH 33.1 pg pg (27.9-34.1) MCHC 35.1 g/dL g/dL (32.4-36.7) RDW 12.9 % % (11.5-15.2) Plt Count 222 10^3/uL 10^3/uL (150-400) MPV 9.7 fL fL (8.7-11.7) Neut % (Auto) 74.5 % H % (39.3-74.2) Lymph % (Auto) 17.7 % % (15.0-45.0) [place] % (Auto) 5.4 % % (4.5-13.0) Eos % (Auto) 1.4 % % (0.6-7.6) Baso % (Auto) 0.6 % % (0.3-1.7) Nucleat RBC Rel Count 0.0 % % (0.0-0.2) Absolute Neuts (auto) 5.25 10^3/uL 10^3/uL (1.70-6.50) Absolute Lymphs (auto) 1.25 10^3/uL 10^3/uL (1.00-3.00) Absolute Monos (auto) 0.38 10^3/uL 10^3/uL (0.30-0.80) Absolute Eos (auto) 0.10 10^3/uL 10^3/uL (0.03-0.40) Absolute Basos (auto) 0.04 10^3/uL 10^3/uL (0.02-0.10) Absolute Nucleated RBC 0.00 10^3/uL 10^3/uL (0-0.01) Immature Gran % 0.4 % % (0.0-1.1) Immature Gran # 0.03 10^3/uL 10^3/uL (0.00-0.10) Sodium 141 mEq/L mEq/L (134-144) Potassium 3.7 mEq/L mEq/L (3.5-5.2) Chloride 105 mEq/L mEq/L (97-110) Carbon Dioxide 24 mEq/l mEq/l (22-31) Anion Gap 12 mEq/L mEq/L (8-16) BUN 10 mg/dL mg/dL (7-23) Creatinine 0.6 mg/dL mg/dL (0.6-1.0) Estimated GFR > 60 Glucose 92 mg/dL mg/dL (70-100) Calcium 8.9 mg/dL mg/dL (8.5-10.4) Total Bilirubin 0.6 mg/dL mg/dL (0.1-1.4) Conjugated Bilirubin 0.2 mg/dL mg/dL (0.0-0.5) Unconjugated Bilirubin 0.4 mg/dL mg/dL (0.0-1.1) AST 55 IU/L H IU/L (14-46) ALT 73 IU/L H IU/L (9-52) Alkaline Phosphatase 112 IU/L IU/L (38-126) Total Protein 6.6 g/dL g/dL (6.3-8.2) Albumin 3.5 g/dL g/dL (3.5-5.0) TSH Pending Urine Color YELLOW Urine Appearance HAZY Urine pH 5.0 (5.0-7.5) Ur Specific [place] 1.006 (1.002-1.030) Urine Protein NEGATIVE (NEGATIVE) Urine Ketones NEGATIVE (NEGATIVE) Urine Blood 3+ H (NEGATIVE) Urine Nitrate NEGATIVE (NEGATIVE) Urine Bilirubin NEGATIVE (NEGATIVE) Urine Urobilinogen NEGATIVE EU EU (0.2-1.0) Ur Leukocyte Esterase 3+ H (NEGATIVE) Urine RBC 10-15 /hpf H /hpf (0-3) Urine WBC 50-182 /hpf H /hpf (0-3) Ur Epithelial Cells TRACE /lpf /lpf (NONE-1+) Urine Bacteria 1+ /hpf H /hpf (NONE SEEN) Urine Mucus TRACE /lpf /lpf (NONE-1+) Urine Glucose NEGATIVE (NEGATIVE) Departure - Departure Disposition: [facility] Inpatient Acute Clinical Impression: hypertension Urinary tract infection Qualifiers: Urinary tract infection type: acute cystitis Hematuria presence: without hematuria Qualified Code(s): N30.00 - Acute cystitis without hematuria Condition: Good
--- NOTE | 2017-02-16 19:01 | CPEKG ---
Heart Rate: 78 RR Interval: 769 P-R Interval: 168 QRSD Interval: 86 QT Interval: 360 QTC Interval: 411 P [place]: 69 QRS [place]: 12 T Wave [place]: 34 EKG Severity - NORMAL ECG - EKG Impression: SINUS RHYTHM Electronically Signed By: Dean Saleh 18-Feb-2017 06:18:44
[2017-02-16 19:04] LABS: COLOR YELLOW; LEUKOCYTE ESTERASE,URINE 3+ (NEGATIVE); NITRITE,URINE NEGATIVE (NEGATIVE)
[2017-02-16 19:06] LABS: % IMMATURE GRANULYOCYTES 0.4 % (0.0-1.1); ABSOLUTE IMMATURE GRANULOCYTES 0.03 10^3/uL (0.00-0.10); ADD DIFF? NO; ADD MORPH? NO; ADD SCAN? NO; ATYPICAL LYMPHOCYTE FLAG 10 (0-99); FRAGMENT RBC FLAG 0 (0-99); HEMATOCRIT 37.6 % (38.0-47.0); HEMOGLOBIN 13.2 g/dL (12.6-16.3); LEFT SHIFT FLG 0 (0-99); LIPEMIA HEMOLYSIS FLAG 90 (0-99); MEAN CELL HEMOGLOBIN 33.1 pg (27.9-34.1); MEAN CELL HEMOGLOBIN CONCENTR. 35.1 g/dL (32.4-36.7); MEAN CELL VOLUME 94.2 fL (81.5-99.8); MEAN PLATELET VOLUME 9.7 fL (8.7-11.7); PLATELET CLUMPS FLAG 0 (0-99); PLATELET COUNT 222 10^3/uL (150-400); RED BLOOD CELL COUNT 3.99 10^6/uL (4.18-5.33); RED CELL DISTRIBUTION WIDTH 12.9 % (11.5-15.2)
[2017-02-16 19:07] LABS: BACTERIA 1+ /hpf (NONE SEEN); MUCUS TRACE /lpf (NONE-1+); WBC,URINE 50-182 /hpf (0-3)
[2017-02-16 19:15] LABS: ALANINE AMINOTRANSFERASE 73 IU/L (9-52); ALBUMIN 3.5 g/dL (3.5-5.0); ALKALINE PHOSPHATASE 112 IU/L (38-126); ANION GAP 12 mEq/L (8-16); ASPARTATE AMINOTRANSFERASE 55 IU/L (14-46); BILIRUBIN,TOTAL 0.6 mg/dL (0.1-1.4); BILIRUBIN-CONJUGATED 0.2 mg/dL (0.0-0.5); BILIRUBIN-UNCONJUGATED 0.4 mg/dL (0.0-1.1); CALCIUM 8.9 mg/dL (8.5-10.4); CARBON DIOXIDE 24 mEq/l (22-31); CHLORIDE 105 mEq/L (97-110); CREATININE 0.6 mg/dL (0.6-1.0); GLOMERULAR FILTRATION RATE > 60; GLUCOSE 92 mg/dL (70-100); POTASSIUM 3.7 mEq/L (3.5-5.2); SODIUM 141 mEq/L (134-144); TOTAL PROTEIN 6.6 g/dL (6.3-8.2)
[2017-02-16] MEDS ORDERED: CEPHALEXIN 500 MG CAP PO ONE (19:47)
[2017-02-16] MEDS: CEPHALEXIN 500 MG CAP PO SCH (19:48)
[2017-02-16] MEDS ORDERED: CALCIUM GLUC 10% 1 GM/10 ML VIAL IVP PRN (19:52)
[2017-02-16] MEDS ORDERED: MAGNESIUM SULF 4 GM/WATER 100 ML IV ONE (19:52)
--- NOTE | 2017-02-16 19:59 | OBPP ---
Progress Note Assessment/Plan: Assessment: post preeclampsia Plan: magnesium sulfate 02/16/17 19:57 Subjective/ Course: 02/16/17 19:57 i received a phone call from the emergency room after the patient presented with lower extremity edema and elevated blood pressures at home. blood pressures are elevated in the ER with slightly elevated liver enzymes. she will be admitted for post magnesium sulfate and observation. Objective: Total Bilirubin 0.6 mg/dL (0.1-1.4) 02/16/17 19:00 Conjugated Bilirubin 0.2 mg/dL (0.0-0.5) 02/16/17 19:00 Unconjugated Bilirubin 0.4 mg/dL (0.0-1.1) 02/16/17 19:00 AST 55 IU/L (14-46) H 02/16/17 19:00 ALT 73 IU/L (9-52) H 02/16/17 19:00 Temp Pulse Resp BP Pulse Ox 37.1 C 80 18 156/93 H 98 02/16/17 18:44 02/16/17 19:48 02/16/17 19:48 02/16/17 19:48 02/16/17 19:48
[2017-02-16] MEDS ORDERED: Mag Sulf 500 ML IV SCH (20:00)
[2017-02-16] MEDS ORDERED: NON-FORMULARY NEW DRUG (Ranitidine Hcl [Zantac] 150 MG) PO SCH (21:00)
[2017-02-16] MEDS ORDERED: WATER IV ONE (21:00)
[2017-02-16] MEDS ORDERED: MAGNESIUM SULF IV ONE (21:00)
[2017-02-16] MEDS: DOCUSATE SODIUM 100 MG CAP PO PRN (22:41)
[2017-02-16] MEDS: IBUPROFEN 600 MG TAB PO PRN (22:41)
[2017-02-16] MEDS ORDERED: HYDROCORTISONE 0.5% CREAM TP PRN (22:48)
[2017-02-17] MEDS: CEPHALEXIN 500 MG CAP PO SCH ×4 (01:20→20:14)
[2017-02-17] MEDS: FAMOTIDINE 20 MG TAB PO SCH ×2 (01:26→12:40)
[2017-02-17 06:32] LABS: % IMMATURE GRANULYOCYTES 0.4 % (0.0-1.1); ABSOLUTE IMMATURE GRANULOCYTES 0.02 10^3/uL (0.00-0.10); ADD DIFF? NO; ADD MORPH? NO; ADD SCAN? NO; ATYPICAL LYMPHOCYTE FLAG 10 (0-99); FRAGMENT RBC FLAG 0 (0-99); HEMATOCRIT 35.9 % (38.0-47.0); HEMOGLOBIN 12.7 g/dL (12.6-16.3); LEFT SHIFT FLG 0 (0-99); LIPEMIA HEMOLYSIS FLAG 90 (0-99); MEAN CELL HEMOGLOBIN 33.5 pg (27.9-34.1); MEAN CELL HEMOGLOBIN CONCENTR. 35.4 g/dL (32.4-36.7); MEAN CELL VOLUME 94.7 fL (81.5-99.8); MEAN PLATELET VOLUME 9.8 fL (8.7-11.7); PLATELET CLUMPS FLAG 20 (0-99); PLATELET COUNT 189 10^3/uL (150-400); RED BLOOD CELL COUNT 3.79 10^6/uL (4.18-5.33); RED CELL DISTRIBUTION WIDTH 12.9 % (11.5-15.2)
[2017-02-17 07:10] LABS: ALANINE AMINOTRANSFERASE 58 IU/L (9-52); ASPARTATE AMINOTRANSFERASE 45 IU/L (14-46); CREATININE 0.5 mg/dL (0.6-1.0); GLOMERULAR FILTRATION RATE > 60; LACTATE DEHYDROGENASE 711 IU/L (313-618); URIC ACID 4.6 mg/dL (2.5-6.8)
[2017-02-17 07:17] LABS: MAGNESIUM 5.1 mg/dL (1.6-2.3)
[2017-02-17] MEDS: IBUPROFEN 600 MG TAB PO PRN ×2 (08:09→18:14)
[2017-02-17] MEDS: DOCUSATE SODIUM 100 MG CAP PO PRN ×2 (08:09→20:14)
--- NOTE | 2017-02-17 10:36 | OBPP ---
Progress Note Assessment/Plan: Assessment: 41 y/o PPD #6 s/p IOL @ 40 weeks secondary to AMA re-admitted for post- pre-eclampsia. Plan: Labs are stable and BP have improved on MgSo4 now. We will continue x 24 hours and then assess clinically when off MgSo4. support today. 02/17/17 10:37 Subjective/ Course: 02/16/17 19:57 i received a phone call from the emergency room after the patient presented with lower extremity edema and elevated blood pressures at home. blood pressures are elevated in the ER with slightly elevated liver enzymes. she will be admitted for post magnesium sulfate and observation. 02/17/17 10:32 Pt is feeling much better this am. She feels slightly "foggy" on the MgSo4 but denies PICKERING, scotomata, or RUQ pain. She has a good appetite and denies N/V. She feels she is diuresing well and is able to ambulate to void with assistance. She is pumping and getting more milk, she still has some sore nipples but is pumping and breast feeding and things are getting better. Baby is doing well. Objective: 02/17/17 06:05 02/17/17 06:05 Uric Acid 4.6 mg/dL (2.5-6.8) 02/17/17 06:05 Total Bilirubin 0.6 mg/dL (0.1-1.4) 02/16/17 19:00 Conjugated Bilirubin 0.2 mg/dL (0.0-0.5) 02/16/17 19:00 Unconjugated Bilirubin 0.4 mg/dL (0.0-1.1) 02/16/17 19:00 AST 45 IU/L (14-46) 02/17/17 06:05 ALT 58 IU/L (9-52) H 02/17/17 06:05 Lactate Dehydrogenase 711 IU/L (313-618) H 02/17/17 06:05 Temp Pulse Resp BP Pulse Ox 37.1 C 80 19 158/90 H 98 02/16/17 18:44 02/16/17 20:00 02/16/17 20:00 02/16/17 20:00 02/16/17 20:00 Uterine Position/Fundal Height: Umbilicus -3 Uterine Tone: Firm Physical Exam - Physical Exam Neck: non-tender, full range of motion, supple Respiratory: chest non-tender, lungs clear, normal breath sounds Cardiac/Chest: regular rate, rhythm Abdomen: normal bowel sounds, other (UFF U-3) Extremities: swelling (tr), Kendrick's sign (neg) DTR- Lower Extremities: Knee (R): 2+, Knee (L): 2+
[2017-02-17] MEDS: HYDROCODONE/APAP 5/325 TAB PO PRN (20:14)
[2017-02-17] MEDS ORDERED: EPSOM SALT 454 GM TP ONE (22:10)
[2017-02-17] MEDS ORDERED: EPSOM SALT 454 GM TP PRN (22:30)
[2017-02-18] MEDS: CEPHALEXIN 500 MG CAP PO SCH ×3 (01:35→14:02)
[2017-02-18] MEDS: FAMOTIDINE 20 MG TAB PO SCH ×2 (06:10→12:40)
[2017-02-18] MEDS: IBUPROFEN 600 MG TAB PO PRN ×2 (08:35→14:28)
[2017-02-18] MEDS: DOCUSATE SODIUM 100 MG CAP PO PRN (08:35)
--- NOTE | 2017-02-18 09:31 | OBPP ---
Progress Note Assessment/Plan: Assessment: 41 y/o PPD #7 s/p IOL @ 40 weeks secondary to AMA re-admitted for post- pre-eclampsia Plan: Pt is stable BPs labile 130-150/70-90's; pt is asymptomatic s/p mag sulfate x 24 hrs Will plan for d/c home with BP check prior to d/c, if elevated >150/90 will give Rx for Nifedipine Instructions given PIH precautions given, will monitor BPs at home and RTO in 2-3 days for BP check in our office Pelvic rest 02/18/17 09:31 Subjective/ Course: 02/16/17 19:57 i received a phone call from the emergency room after the patient presented with lower extremity edema and elevated blood pressures at home. blood pressures are elevated in the ER with slightly elevated liver enzymes. she will be admitted for post magnesium sulfate and observation. 02/17/17 10:32 Pt is feeling much better this am. She feels slightly "foggy" on the MgSo4 but denies PICKERING, scotomata, or RUQ pain. She has a good appetite and denies N/V. She feels she is diuresing well and is able to ambulate to void with assistance. She is pumping and getting more milk, she still has some sore nipples but is pumping and breast feeding and things are getting better. Baby is doing well. 02/18/17 09:34 Pt seen and examined. Feeling better off the mag sulfate. She has head fullnesss , but denies any HAs. Denies any visual changes-scotomata or RUQ pain. Sheri regular diet, voiding and BM x 1 yesterday. BF with a shield, working with . Would like to go home and can monitor BPs at home. Objective: Uric Acid 4.6 mg/dL (2.5-6.8) 02/17/17 06:05 Total Bilirubin 0.6 mg/dL (0.1-1.4) 02/16/17 19:00 Conjugated Bilirubin 0.2 mg/dL (0.0-0.5) 02/16/17 19:00 Unconjugated Bilirubin 0.4 mg/dL (0.0-1.1) 02/16/17 19:00 AST 45 IU/L (14-46) 02/17/17 06:05 ALT 58 IU/L (9-52) H 02/17/17 06:05 Lactate Dehydrogenase 711 IU/L (313-618) H 02/17/17 06:05 Temp Pulse Resp BP Pulse Ox 36.6 C 70 16 132/89 H 98 02/18/17 02:00 02/18/17 02:00 02/18/17 02:00 02/18/17 02:00 02/18/17 02:00 Uterine Position/Fundal Height: Umbilicus -2 Uterine Tone: Firm Physical Exam - Physical Exam Respiratory: lungs clear, normal breath sounds Cardiac/Chest: regular rate, rhythm Abdomen: normal bowel sounds, non-tender, soft Extremities: non-tender, normal inspection, swelling DTR- Lower Extremities: Plantar (R): 1+, Plantar (L): 1+ Skin: normal color, warm/dry Neuro/Psych: alert, normal mood/affect, oriented x 3
[2017-02-18 09:40] VITALS: TEMP 98.2
[2017-02-18 12:43] VITALS: BP 139/93; PULSE 73; RESP 18; O2SAT 98
[2017-02-18] MEDS: HYDROCODONE/APAP 5/325 TAB PO PRN (14:03)
== END 2017-02-18 14:50 | disposition home or self-care (01) ==
LOC: FLD 20:06 → OBSVTOIN 02-17 13:44 → INTOOBSV 02-17 13:44 → FOB 02-18 01:45
PROVIDERS: ADMIT Obstetrics & Gynecology; ATTEND Obstetrics & Gynecology
DX: I10 Essential (primary) hypertension (principal); N30.00 Acute cystitis without hematuria
CPT/HCPCS: G0378; G0463; J0610; J3475

== ENCOUNTER → 2017-02-24 | Outpatient (CLI) | payer OTHER | LOC: FLACT 10:20 | PROVIDERS: ATTEND Obstetrics & Gynecology | DX: O92.13 Cracked nipple associated with lactation (principal) | CPT/HCPCS: G0463 ==

== ENCOUNTER → 2017-07-28 | Outpatient (CLI) | payer OTHER | LOC: FIMAGING 16:23 | PROVIDERS: ATTEND Nurse Practitioner Women's Health | DX: M79.604 Pain in right leg (principal); R22.41 Localized swelling, mass and lump, right lower limb ==

== ENCOUNTER → 2018-08-13 | Outpatient (CLI) | payer OTHER | LOC: CIMAGING 09:01 ==